=== PATIENT | female | born 1960 | race Caucasian/White ===

== ENCOUNTER 2023-02-12 08:37 | Emergency (ER) | payer BC, MEDICARE, SELFPAY ==
--- NOTE | 2023-02-12 08:39 | ED_ITS ---
HPI - Skin/Abscess/Foreign Bdy General Chief complaint: Skin/Abscess/Foreign Body Stated complaint: Rash on the back of legs Time Seen by Provider: 02/12/23 08:39 Source: patient Mode of arrival: ambulatory Limitations: no limitations History of Present Illness HPI narrative: Stacey is a 62-year-old female patient presenting to the clinic today with complaints of a rash to the back of her legs x2 weeks. She reports she has redness, swelling, and blisters developing to the back of her legs. History of cellulitis in the past. Has weeping blisters to the back of the right leg. Review of Systems Review of Systems: Pertinent positives per HPI. Patient denies any fever, chills, headache, visual changes, dizziness, cough, runny nose, sore throat, shortness of breath, chest pain, palpitations, nausea, vomiting, diarrhea, constipation, abdominal pain, or any urinary issues. PMFSH Comments At the time of my signature, I reviewed and agree with the nursing past medical, surgical, social, and family history. There is no relevant family history pertinent to the patient complaint. Exam Narrative: General: Well-developed, morbidly obese in no apparent distress Head: Normocephalic, atraumatic. Cardio: Regular rate and rhythm, s1 and s2 normal, no murmur appreciated. Resp: Clear to auscultation bilaterally, no rhonchi, rales, wheezing or rubs. Integumentary: [place], warm, and dry, bilateral lower extremity redness, swelling, mild erythema, with weakening blisters with yellow serous exudate, wound culture obtained Course Course Emergency Course: Portions of this record may have been created with voice recognition software. Level of Care: Express Care Visit Vital Signs Vital signs: Vital signs reviewed MDM - Skin/Abscess/Foreign Bdy MDM Narrative Medical decision making narrative: At the time of visit patient is resting comfortably on the exam table. I suspect patient has cellulitis. Will place the patient on clindamycin. Discussed supportive measures with the patient she voiced understanding discharge instructions and agrees to treatment plan. Differential Diagnosis Differential diagnosis: Likely abscess of skin or subcutaneous tissue, viral exanthem, urticaria, herpes zoster, cellulitis, eczema, insect bites and contact dermatitis Discharge Plan Discharge Clinical Impression: Bilateral cellulitis of lower leg Patient Disposition: Home, Self-Care Condition: Stable Instructions: Antibiotic Form, Cellulitis (ED) Additional Instructions: Wound culture was obtained in the clinic today Keep wound clean and dry Keep bilateral lower extremities elevated as much as possible If wounds or weeping keep covered Recommending getting Sean hose use once symptoms and improved/resolved Take clindamycin as prescribed Follow-up with your PCP in 3-5 days if symptoms persist-may need lab work/diuretics Go to the emergency room if you develop high fever not controlled by Tylenol Motrin, increase in pain, increase in swelling, increasing redness, chest pain, or shortness of breath Prescriptions: New clindamycin HCl 300 mg capsule 300 mg PO Q8H 10 Days Qty: 30 0RF Follow-up/Referrals: PHYSICIAN,[employer]ACHINE TENDER [Non-Staff] - Time of Disposition: 09:04 Quality NIHSS Nursing Documentation ED NIHSS nursing documentation: reviewed/agree
[2023-02-12 08:58] VITALS: BP 159/96; PULSE 91; RESP 16; TEMP 36.6; O2SAT 96
== END 2023-02-12 09:10 | disposition home or self-care (01) ==
LOC: EXPCOLL 08:52
PROVIDERS: Emergency Provider Nurse Practitioner Family
DX: L03.116 Cellulitis of left lower limb (principal); L03.115 Cellulitis of right lower limb; I48.91 Unspecified atrial fibrillation
CPT/HCPCS: 87070; 87075; 87147; 87181; 87186; 87205; 99203; G0463

== ENCOUNTER 2023-05-01 18:37 | Emergency (ER) | payer BC, MEDICARE, SELFPAY ==
[2023-05-01 18:53] VITALS: BP 185/118; PULSE 88; RESP 18; TEMP 36.6; O2SAT 98
--- NOTE | 2023-05-01 19:56 | ED.GENADULT ---
HPI - General Adult General Chief complaint: Skin/Abscess/Foreign Body Stated complaint: sent from [facility] OP with cellulitis of legs Time Seen by Provider: 05/01/23 19:49 History of Present Illness HPI narrative: Patient is a 62-year-old female who presents ER with concerns for infection to her lower extremities. Patient has ulcerations to the posterior aspects of her lower calves bilaterally. Reports that they have been there for months. They have recently begun leaking clear fluid. No fevers or chills or sweats. No new redness to her legs. She reports several months ago she was seen at a urgent care and given oral antibiotics which seemed to help for a little bit. She has not seen her primary care doctor since 2020 and is currently trying to get a new physician. She does see a supervisor finishing department for her A-fib. She does take some Lasix as well as lisinopril. No chest pain or chest pressure. No difficulty breathing. No lymphangitic streaking. Was sent here by [facility] quick care. Related Data Home Medications Medication Instructions Recorded Confirmed diltiazem HCl 360 mg 360 mg PO DAILY 02/12/23 02/12/23 capsule,extended release 24 hr esomeprazole magnesium 40 mg 40 mg PO DAILY 02/12/23 02/12/23 capsule,delayed release furosemide 80 mg tablet 80 mg PO DAILY 02/12/23 02/12/23 lisinopril 40 mg tablet 40 mg PO DAILY 02/12/23 02/12/23 metoprolol tartrate 100 mg tablet 100 mg PO BID 02/12/23 02/12/23 rivaroxaban 20 mg tablet (Xarelto) 20 mg PO DAILY 02/12/23 02/12/23 Allergies Allergy/AdvReac Type Severity Reaction Status Date / Time Penicillins Allergy Mild Rash Verified 05/01/23 19:50 Review of Systems Constitutional: Constitutional: Denies chills, Denies fatigue and Denies fever(s) Respiratory: Respiratory: Reports no additional respiratory complaints Musculoskeletal: Musculoskeletal: Reports no additional musculoskeletal complaints Integumentary/Breasts: Skin/Breast: Denies erythema, Denies rash and Reports skin ulcer Neurologic: Reports system reviewed and no additional complaints, except as documented [facility] Past Medical History Medical History (Updated 05/01/23 @ 21:21 by Samir Schaffer MD) Atrial fibrillation Hypertension Surgical History Surgical History (Updated 05/01/23 @ 19:58 by Samir Schaffer MD) No pertinent past surgical history Exam Narrative: GENERAL: Well-appearing, well-nourished, and in no acute distress. HEAD: Normocephalic, atraumatic. ENT: Mucous membranes moist. CHEST: Clear to auscultation. No respiratory distress. HEART: Regular rate and rhythm. Normal peripheral pulses. ABDOMEN: Soft, nontender, nondistended. EXTREMITIES: Normal range of motion. 2+ lower extremity edema.. SKIN: Warm, dry. Ulcerations to the posterior aspects of the legs at the lower half of the calf extending down towards the heel. Constant weeping noted. No surrounding cellulitis. NEURO: Alert and oriented x3. PSYCH: Normal mood and affect. Course Course Emergency Course: Patient with chronic nonhealing ulcerations to the backside of her legs. Discussed with her that she needs to follow-up with a primary care physician to be referred to wound care and that we cannot refer through the ER. No evidence of acute infection requiring hospitalization or antibiotics at this time. Patient will have the area dressed and she will be discharged Vital Signs Vital signs: Vital Signs Temperature 97.9 F 05/01/23 18:53 Pulse Rate 88 05/01/23 18:53 Respiratory Rate 18 05/01/23 18:53 Blood Pressure 185/118 H 05/01/23 18:53 Pulse Oximetry 98 05/01/23 18:53 Oxygen Delivery Room Air 05/01/23 18:53 Temperature 97.9 F 05/01/23 18:53 Pulse Rate 88 05/01/23 18:53 Respiratory Rate 18 05/01/23 18:53 Blood Pressure 185/118 H 05/01/23 18:53 Pulse Oximetry 98 05/01/23 18:53 Oxygen Delivery Room Air 05/01/23 18:53 Medical Decision Making Vital Signs Vital Signs:
[2023-05-01 20:06] LABS: Basophils Percent Auto 0.4 % (0.2-1.2); Eosinophils Percent Auto 0.4 % (0-4.4); Hematocrit 39.6 % (37.0-47.0); Hemoglobin 12.2 g/dL (12.0-15.0); Immature Granulocyte Absolute 0.03 K/mm3 (0.00-0.031); Immature Granulocyte Percent A 0.4 % (0-0.5); Lymphocytes Absolute Auto 2.03 K/mm3 (0.9-3.2); Lymphocytes Percent Auto 25.6 % (18.3-44.2); Mean Corpuscular HGB Conc 30.8 g/dl (32-36); Mean Corpuscular Hemoglobin 29.4 pg (26-34); Mean Corpuscular Volume 95.4 fl (80-100); Mean Platelet Volume 9.5 fl (7.4-10.4); Monocytes Absolute Auto 0.7 K/mm3 (0.1-0.6); Neutrophils Absolute Auto 5.1 K/mm3 (1.3-6.7); Neutrophils Percent Auto 64.2 % (45.5-73.1); Platelet Count Result 249 k/mm3 (150-375); Red Blood Count 4.15 M/mm3 (4.2-5.4); White Blood Count 7.9 K/mm3 (4.5-10.0)
[2023-05-01 20:17] LABS: Alanine Aminotransferase 18 U/L (6-35); Albumin Level 4.3 g/dL (3.5-5.1); Alkaline Phosphatase 98 U/L (38-126); Anion Gap 13 mmol/L (8-16); Aspartate Amino Transferase 24 U/L (14-36); Bilirubin,Total 0.5 mg/dL (0.2-1.3); Blood Urea Nitrogen 13 mg/dL (7-17); Calcium 9.2 mg/dL (8.4-10.2); Carbon Dioxide 25 mmol/L (22-30); Chloride 100 mmol/L (98-107); Estimated CRCL calculation 100 ml/min; Estimated Glomerular Filt Rate > 60; Glucose 132 mg/dL (65-110); Potassium 4.3 mmol/L (3.4-5.0); Sodium 138 mmol/L (137-145)
== END 2023-05-01 21:41 | disposition home or self-care (01) ==
PROVIDERS: Emergency Provider Emergency Medicine
DX: I83.018 Varicose veins of right lower extremity with ulcer other part of lower leg (principal); I83.028 Varicose veins of left lower extremity with ulcer other part of lower leg; L97.819 Non-pressure chronic ulcer of other part of right lower leg with unspecified severity; L97.829 Non-pressure chronic ulcer of other part of left lower leg with unspecified severity; I10 Essential (primary) hypertension; I48.91 Unspecified atrial fibrillation; Z79.01 Long term (current) use of anticoagulants
CPT/HCPCS: 36415; 80053; 85025; 99283